=== PATIENT | male | born 1980 | race Caucasian/White ===

== ENCOUNTER 2018-11-10 21:49 | Emergency (ER) | payer OTHER ==
[~2018-11-10] VITALS: Ht 185.4 cm; Wt 72.7 kg
[2018-11-10 23:13] LABS: BASO # 0.1 10^3/uL (0.0-0.2); BASO % 1.1 % (0.0-1.0); EOS # 1.5 10^3/uL (0.0-0.50); EOS % 15.4 % (0.0-3.0); HEMATOCRIT 42.6 % (42.0-52.0); HEMOGLOBIN 14.8 g/dl (13.5-17.5); MEAN CORPUSCULAR HEMOGLOBIN 30.5 pg (27.0-33.0); MEAN CORPUSCULAR HGB CONC 34.7 g/dl (32.0-36.5); MEAN CORPUSCULAR VOLUME 87.7 fl (80.0-96.0); MONO # 0.6 10^3/uL (0.0-0.8); MONO % 5.8 % (0.0-5.0); NEUTROPHILS # 5.8 10^3/uL (1.8-7.7); NEUTROPHILS % 57.3 % (36.0-66.0); PLATELET COUNT, AUTOMATED 210 10^3/uL (150-450); RED BLOOD COUNT 4.86 10^6/uL (4.30-6.10)
[2018-11-10 23:42] LABS: ALBUMIN 3.7 GM/DL (3.2-5.2); ALT/SGPT 27 U/L (12-78); BILIRUBIN,DIRECT 0.2 MG/DL (0.0-0.2); BILIRUBIN,TOTAL 0.6 MG/DL (0.2-1.0); BLOOD UREA NITROGEN 31 MG/DL (7-18); CALCIUM LEVEL 9.1 MG/DL (8.5-10.1); CARBON DIOXIDE LEVEL 29 MEQ/L (21-32); CHLORIDE LEVEL 105 MEQ/L (98-107); CPK CREATINE PHOSPHOKINASE 125 U/L (39-308); CREATININE FOR GFR 1.01 MG/DL (0.70-1.30); GLOMERULAR FILTRATION RATE > 60.0 (>60); GLUCOSE, FASTING 84 MG/DL (70-100); LIPASE 134 U/L (73-393); POTASSIUM SERUM 3.8 MEQ/L (3.5-5.1); SODIUM LEVEL 140 MEQ/L (136-145); TOTAL PROTEIN 6.6 GM/DL (6.4-8.2); TROPONIN I < 0.02 NG/ML (< 0.10)
[2018-11-11] MEDS ORDERED: GI COCKTAIL 50ML BTL(HYOSCYAMINE/MAALOX/LIDOCAINE VISCOUS)(1:3:1) PO ONE (00:15)
[2018-11-11] MEDS ORDERED: DICY10SO PO (00:34)
[2018-11-11] MEDS ORDERED: OMEP40CA2 PO (00:34)
[2018-11-11 01:30] VITALS: BP 122/74
[2018-11-11] MEDS ORDERED: CARA1TAB6 PO (01:51)
--- NOTE | 2018-11-11 02:02 | ECGEPIP ---
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
[2018-11-12] MEDS ORDERED: CARA1TAB6 PO (20:16)
[2018-11-12] MEDS ORDERED: DICY10CA13 PO (20:16)
== END 2018-11-11 02:02 | disposition home or self-care (01) ==
LOC: M ED 21:49
DX: K52.9 Noninfective gastroenteritis and colitis, unspecified (principal); K44.9 Diaphragmatic hernia without obstruction or gangrene; I45.19 Other right bundle-branch block; Z79.899 Other long term (current) drug therapy; Z88.5 Allergy status to narcotic agent

== ENCOUNTER 2018-11-12 15:50 | Observation (INO) | payer OTHER ==
[~2018-11-12] VITALS: Ht 185.4 cm; Wt 68.8 kg
[~2018-11-12 15:50] MED LIST: CARA1TAB6 PO; DICY10SO PO; OMEP40CA2 PO
[2018-11-12 16:29] LABS: BASO # 0.1 10^3/uL (0.0-0.2); BASO % 1.1 % (0.0-1.0); EOS # 1.1 10^3/uL (0.0-0.50); HEMATOCRIT 48.7 % (42.0-52.0); HEMOGLOBIN 16.7 g/dl (13.5-17.5); LYMPH # 2.5 10^3/uL (1.5-4.5); LYMPH % 22.6 % (24.0-44.0); MEAN CORPUSCULAR HEMOGLOBIN 30.3 pg (27.0-33.0); MEAN CORPUSCULAR HGB CONC 34.3 g/dl (32.0-36.5); MEAN CORPUSCULAR VOLUME 88.4 fl (80.0-96.0); MONO # 0.6 10^3/uL (0.0-0.8); MONO % 5.6 % (0.0-5.0); NEUTROPHILS # 6.6 10^3/uL (1.8-7.7); NEUTROPHILS % 60.4 % (36.0-66.0); PLATELET COUNT, AUTOMATED 243 10^3/uL (150-450); RED BLOOD COUNT 5.51 10^6/uL (4.30-6.10)
[2018-11-12 16:39] LABS: INR 1.06; PROTHROMBIN TIME 13.9 SECONDS (12.1-14.4)
[2018-11-12 16:40] LABS: PARTIAL THROMBOPLASTIN TIME 28.4 SECONDS (25.4-37.6)
[2018-11-12] MEDS ORDERED: ISOVUE-370 76% 100ML VIAL (Q9967) As Ordered ONE (16:49)
[2018-11-12 17:07] LABS: ALBUMIN 4.1 GM/DL (3.2-5.2); BILIRUBIN,DIRECT 0.2 MG/DL (0.0-0.2); BILIRUBIN,TOTAL 0.5 MG/DL (0.2-1.0); TOTAL PROTEIN 7.4 GM/DL (6.4-8.2)
[2018-11-12] MEDS ORDERED: NS 1,000 ML IV ONE (17:15)
[2018-11-12] MEDS ORDERED: GI COCKTAIL 50ML BTL(HYOSCYAMINE/MAALOX/LIDOCAINE VISCOUS)(1:3:1) PO ONE (18:00)
--- NOTE | 2018-11-12 18:05 | REP ---
CT ABDOMEN AND PELVIS WITH IV CONTRAST: TECHNIQUE: Axial contrast enhanced images from the lung bases to the pubic symphysis using 100 mL Isovue 370 intravenous contrast material with multiplanar reformations. Visualized lung bases demonstrate chronic mild fibrotic change in the left lower lobe as seen on prior CT of 09/03/2015. The liver, spleen, adrenals, pancreas, and kidneys are unremarkable. There is no hydronephrosis. There is no hiatal hernia. The gallbladder is grossly unremarkable. There is no abdominal aortic aneurysm. There is no adenopathy. There is no free air or free fluid. There is no bowel wall thickening. The appendix is normal. Urinary bladder is mildly distended and grossly unremarkable. I do not see evidence of a pelvic mass. There is a small bone island in the proximal right femur. IMPRESSION: No acute abnormalities. Electronically Signed by Nikolas Sanchez MD 11/12/2018 07:48 P
[2018-11-12] MEDS ORDERED: MAALOX 30 ML SUSP *UDC PO PRN (20:00)
[2018-11-12] MEDS ORDERED: ACETAMINOPHEN TAB 650MG DOSE (2X325MG) PO PRN (20:00)
--- NOTE | 2018-11-12 20:01 | HPEPDOC ---
General Date of Admission 11/12/2018 Date of Service: Nov 12, 2018 Attending Physician: JERZY ROSALES MD Chief Complaint The patient is a 38-year-old male admitted with a reason for visit of Abd Pain. History of Present Illness Patient is a 38-year-old male, presenting to the emergency room on account of abdominal pain onset for 1 week. Patient has a past medical history significant for GERD, spontaneous pneumothorax, anxiety. He describes the pain as a burning sensation to his right upper quadrant which is constant, and another pain to his epigastric area which is intermittent and occurs after eating. Patient states he has no relieving factors or aggravating factors. Yogurt makes right upper quadrant pain a little better. 3 years ago. Patient had a similar occurrence of pain and was evaluated by flat breakdown processor with findings of hernia and gastritis. He was treated with proton pump inhibitor and antidepressants. Assessment in the ED with CT scan of abdomen and pelvis was negative for acute abdominal process. Laboratory data was unremarkable except for elevated white blood count. Patient denies any chills, fever, nausea, weakness, chest pain. Home Medications Scheduled Omeprazole (Omeprazole) 40 Mg Capsule.dr, 40 MG PO DAILY, (Reported) Miscellaneous Medications Dicyclomine Hcl (Dicyclomine HCl) 10 Mg/5 Ml Solution, 10 MG PO, (Reported) Allergies Coded Allergies: morphine (Verified Adverse Reaction, Mild, headace, 11/10/18) Past Medical History Medical History Spontaneous pneumothorax. Anxiety GERD Vertebral tumor Surgical History Back surgery EGD. Lungs surgery with left lobectomy. Family History Father: Myocardial infarction at 35 years. Mother: Diabetes mellitus, thyroid Sibling: Spontaneous pneumothorax A-FIB/CHADSVASC A-FIB History Current/History of A-Fib/PAF?: No Current PO Anticoag Therapy: No Review of Systems Other systems A 10 point pertinent review of systems was completed, negative except as stated in the history of presenting illness. Physical Examination Other physical findings GENERAL: NAD SKIN : Warm, dry intact HEENT: Atraumatic, normocephalic, PERRL, moist mucous membrane CARDIOVASCULAR: Regular rate and rhythm, S1S2, no JVD, no edema, distal pulses + and palpable RESP: CTAB, no accessory muscle use noted ABDOMEN: BS+ non distended non tender MS: no joint deformities NEURO: Alert and oriented x 3, CN2-12 grossly intact PSYCH: no anxiety or agitation, appropriate mood and affect. Vital Signs Vital Signs Date Time Temp Pulse Resp B/P (MAP) Pulse Ox O2 Delivery O2 Flow Rate FiO2 11/12/18 16:24 11/12/18 16:01 98.9 95 20 99 Room Air Laboratory Data Labs 24H Laboratory Tests 2 11/12/18 16:10: Immature Granulocyte % (Auto) 0.3, White Blood Count 11.0H, Red Blood Count 5.51, Hemoglobin 16.7, Hematocrit 48.7, Mean Corpuscular Volume 88.4, Mean Corpuscular Hemoglobin 30.3, Mean Corpuscular Hemoglobin Concent 34.3, Red Cell Distribution Width 12.0, Platelet Count 243, Neutrophils (%) (Auto) 60.4, Lymphocytes (%) (Auto) 22.6L, Monocytes (%) (Auto) 5.6H, Eosinophils (%) (Auto) 10.0H, Basophils (%) (Auto) 1.1H, Neutrophils # (Auto) 6.6, Lymphocytes # (Auto) 2.5, Monocytes # (Auto) 0.6, Eosinophils # (Auto) 1.1H, Basophils # (Auto) 0.1, Nucleated Red Blood Cells % (auto) 0.0, Prothrombin Time 13.9, Prothromb Time International Ratio 1.06, Activated Partial Thromboplast Time 28.4, Urine Color YELLOW, Urine Appearance CLEAR, Urine pH 7.0, Urine Specific [place] 1.048, Urine Protein NEGATIVE, Urine Glucose (UA) NEGATIVE, Urine Ketones NEGATIVE, Urine Blood NEGATIVE, Urine Nitrite NEGATIVE, Urine Bilirubin NEGATIVE, Urine Urobilinogen 0.2, Urine Leukocyte Esterase NEGATIVE, Urine WBC (Auto) 0, Urine RBC (Auto) 1, Urine Hyaline Casts (Auto) 0, Urine Bacteria (Auto) NEGATIVE, Urine Squamous Epithelial Cells 0, Urine Sperm (Auto) , Lactic Acid Level 1.1, Aspartate Amino Transf (AST/SGOT) 18, Alanine Aminotransferase (ALT/SGPT) 29, Alkaline Phosphatase 60, Total Bilirubin 0.5, Direct Bilirubin 0.2, Total Pro tein 7.4, Albumin 4.1, Albumin/Globulin Ratio 1.24, Amylase Level 43, Lipase 127 11/12/18 16:20: POC Glucose (Misc Panel) 84, POC Sodium (Misc Panel) 140, POC Potassium (Misc Panel) 3.7, POC Chloride (Misc Panel) 99, POC Total CO2 (Misc Panel) 29.0H, POC Blood Urea Nitrogen (Misc Panel 27H, POC Ionized Calcium (Misc Panel) 4.8, POC Creatinine (Misc Panel) 1.0, POC Hematocrit (Misc Panel) 49.0 CBC/BMP Laboratory Tests 11/12/18 16:10 Red Blood Count 5.51, Mean Corpuscular Volume 88.4, Mean Corpuscular Hemoglobin 30.3, Mean Corpuscular Hemoglobin Concent 34.3, Red Cell Distribution Width 12.0, Neutrophils (%) (Auto) 60.4, Lymphocytes (%) (Auto) 22.6 L, Monocytes (%) (Auto) 5.6 H, Eosinophils (%) (Auto) 10.0 H, Basophils (%) (Auto) 1.1 H, Neutrophils # (Auto) 6.6, Lymphocytes # (Auto) 2.5, Monocytes # (Auto) 0.6, Eosinophils # (Auto) 1.1 H, Basophils # (Auto) 0.1 Assessment/Plan Abdominal pain -GI specialist has been called by ED and plans to see patient tomorrow morning -Place on clear liquid diet in anticipation for possible gastric studies -Proton pump inhibitor twice a day -Normal saline at 100 mL per hour -Follow findings and recommendations of GI team Anxiety disorder -Possible contrast reading factor to patient's gastric pain DVT prophylaxis -Lovenox daily Plan / VTE VTE Prophylaxis Ordered?: Yes JOAN EARL Nov 12, 2018 20:01
[2018-11-12] MEDS ORDERED: CARA1TAB6 PO (20:16)
[2018-11-12] MEDS ORDERED: DICY10CA13 PO (20:16)
[2018-11-12] MEDS: NS 1,000 ML IV SCH (20:58)
[2018-11-12 21:10] VITALS: BP 118/76
[2018-11-12] MEDS: PANTOPRAZOLE 40MG INJ (PROTONIX) (C9113) IV SCH (21:31)
[2018-11-13] VITALS: BP 109/74
[2018-11-13 04:00] VITALS: BP 95/55
--- NOTE | 2018-11-13 05:53 | ECGEPIP ---
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
[2018-11-13] MEDS: NS 1,000 ML IV SCH (06:15)
[2018-11-13 08:00] VITALS: BP 124/78
[2018-11-13 08:04] LABS: BASO # 0.1 10^3/uL (0.0-0.2); EOS # 1.2 10^3/uL (0.0-0.50); EOS % 13.2 % (0.0-3.0); HEMATOCRIT 44.8 % (42.0-52.0); LYMPH # 2.1 10^3/uL (1.5-4.5); LYMPH % 23.7 % (24.0-44.0); MEAN CORPUSCULAR HEMOGLOBIN 29.8 pg (27.0-33.0); MEAN CORPUSCULAR HGB CONC 33.5 g/dl (32.0-36.5); MEAN CORPUSCULAR VOLUME 89.1 fl (80.0-96.0); MONO # 0.5 10^3/uL (0.0-0.8); MONO % 5.4 % (0.0-5.0); NEUTROPHILS % 56.5 % (36.0-66.0); PLATELET COUNT, AUTOMATED 207 10^3/uL (150-450); RED BLOOD COUNT 5.03 10^6/uL (4.30-6.10); WHITE BLOOD COUNT 8.9 10^3/uL (4.0-10.0)
[2018-11-13] MEDS: PANTOPRAZOLE 40MG INJ (PROTONIX) (C9113) IV SCH (08:11)
[2018-11-13] MEDS: SUCRALFATE 1 GM TAB PO SCH ×2 (08:29→12:00)
[2018-11-13 09:13] LABS: ALBUMIN 3.6 GM/DL (3.2-5.2); ALT/SGPT 28 U/L (12-78); BILIRUBIN,TOTAL 1.1 MG/DL (0.2-1.0); BLOOD UREA NITROGEN 15 MG/DL (7-18); CALCIUM LEVEL 8.3 MG/DL (8.5-10.1); CARBON DIOXIDE LEVEL 30 MEQ/L (21-32); CHLORIDE LEVEL 107 MEQ/L (98-107); CREATININE FOR GFR 1.03 MG/DL (0.70-1.30); GLOMERULAR FILTRATION RATE > 60.0 (>60); GLUCOSE, FASTING 95 MG/DL (70-100); POTASSIUM SERUM 3.8 MEQ/L (3.5-5.1); SODIUM LEVEL 140 MEQ/L (136-145); TOTAL PROTEIN 6.3 GM/DL (6.4-8.2)
--- NOTE | 2018-11-13 12:42 | REP ---
RIGHT UPPER QUADRANT ULTRASOUND: Real-time sonographic evaluation of the right upper quadrant was performed. Gallbladder demonstrates no evidence of intraluminal sludge or calculi, wall thickening or pericholecystic fluid. There is no intrahepatic or extrahepatic biliary dilatation, common bile duct measuring 4 mm. Liver and pancreas demonstrate no gross mass. Right kidney demonstrates no hydronephrosis with normal size 12.3 cm in length. No ascites is seen. IMPRESSION: Negative right upper quadrant ultrasound. No gallstones seen. Electronically Signed by Nikolas Sanchez MD 11/13/2018 07:32 P
[2018-11-13] MEDS ORDERED: OMEP40CA2 PO (13:25)
[2018-11-13] MEDS ORDERED: MYLASSUD PO (13:25)
--- NOTE | 2018-11-13 16:32 | DS.PDOC ---
Discharge Summary General Date of Admission Nov 12, 2018 at 19:46 Date of Discharge 11/13/18 Discharge Summary PROCEDURES PERFORMED DURING STAY: [None]. DISCHARGE DIAGNOSES: Acute gastritis and acid reflux. COMPLICATIONS/CHIEF COMPLAINT: Gastritis. HISTORY OF PRESENT ILLNESS: Please see history and physical HOSPITAL COURSE: Patient is a 38-year-old male, presenting to the emergency room on account of abdominal pain onset for 1 week. Patient has a past medical history significant for GERD, Hiatal hernia, spontaneous pneumothorax, H/o left lung lobectomy, Back surgery, anxiety. He describes the pain as a burning sensation to his right upper quadrant which is constant, and another pain to his epigastric area which is intermittent and occurs after eating. 3 years ago patient had a similar occurrence of pain and was evaluated by supervisor slate splitting with findings of hernia and gastritis. He was treated with proton pump inhibitor and antidepressants. Patient was admitted for possible acute gastr itis. Acute gastritis/ Acute episode of GERD/Hiatal hernia symptoms improved. Had EGD and upper Gi series done in the past CT abdomen pelvis normal GB ultrasound no abnormalities. tolerated BRAT diet. continue PPI bid, sucralfate, mylanta prn follow up with PMD and Dr Nolen as outpatient. If symptoms recur frequently then may need an EGD which can be done as an outpatient. Educated about diet and things to avoid. DISCHARGE MEDICATIONS: Please see below. ALLERGIES: Please see below. PHYSICAL EXAMINATION ON DISCHARGE: VITAL SIGNS: Please see below. GENERAL: NAD, Lean and thin , tall in appearance. SKIN : Warm, dry intact HEENT: Atraumatic, normocephalic, PERRL, moist mucous membrane CARDIOVASCULAR: Regular rate and rhythm, S1S2, no JVD, no edema, distal pulses + and palpable RESP: CTAB, no accessory muscle use noted ABDOMEN: BS+ non distended non tender MS: no joint deformities NEURO: Alert and oriented x 3, CN2-12 grossly intact PSYCH: no anxiety or agitation, appropriate mood and affect. LABORATORY DATA: Please see below. ACTIVITY: [As tolerated]. DIET: BRAT diet followed by bland diet. DISPOSITION: 01 Home, Self-Care. DISCHARGE INSTRUCTIONS: Follow up PMD in [address] Nolen as needed DISCHARGE CONDITION: [Stable]. TIME SPENT ON DISCHARGE: 35 minutes. Vital Signs/I&Os Vital Signs Date Time Temp Pulse Resp B/P (MAP) Pulse Ox O2 Delivery O2 Flow Rate FiO2 11/13/18 08:00 98.5 68 18 124/78 (93) 100 11/12/18 20:55 Room Air I&O- Last 24 Hours up to 6 AM 11/13/18 06:00 Intake Total 1420 ml Output Total 600 ml Balance 820 ml Laboratory Data Labs 24H Laboratory Tests 2 11/13/18 07:51: Immature Granulocyte % (Auto) 0.2, White Blood Count 8.9, Red Blood Count 5.03, Hemoglobin 15.0, Hematocrit 44.8, Mean Corpuscular Volume 89.1, Mean Corpuscular Hemoglobin 29.8, Mean Corpuscular Hemoglobin Concent 33.5, Red Cell Distribution Width 12.0, Platelet Count 207, Neutrophils (%) (Auto) 56.5, Lymphocytes (%) (Auto) 23.7L, Monocytes (%) (Auto) 5.4H, Eosinophils (%) (Auto) 13.2H, Basophils (%) (Auto) 1.0, Neutrophils # (Auto) 5.0, Lymphocytes # (Auto) 2.1, Monocytes # (Auto) 0.5, Eosinophils # (Auto) 1.2H, Basophils # (Auto) 0.1, Nucleated Red Blood Cells % (auto) 0.0, Anion Gap 3L, Glomerular Filtration Rate > 60.0, Blood Urea Nitrogen 15#, Creatinine 1.03, Sodium Level 140, Potassium Level 3.8, Chloride Level 107, Carbon Dioxide Level 30, Calcium Level 8.3L, Aspartate Amino Transf (AST/SGOT) 17, Alanine Aminotransferase (ALT/SGPT) 28, Alkaline Phos phatase 49, Total Bilirubin 1.1#H, Total Protein 6.3L, Albumin 3.6, Albumin/Globulin Ratio 1.33 CBC/BMP Laboratory Tests 11/13/18 07:51 Red Blood Count 5.03, Mean Corpuscular Volume 89.1, Mean Corpuscular Hemoglobin 29.8, Mean Corpuscular Hemoglobin Concent 33.5, Red Cell Distribution Width 12.0, Neutrophils (%) (Auto) 56.5, Lymphocytes (%) (Auto) 23.7 L, Monocytes (%) (Auto) 5.4 H, Eosinophils (%) (Auto) 13.2 H, Basophils (%) (Auto) 1.0, Neutrophils # (Auto) 5.0, Lymphocytes # (Auto) 2.1, Monocytes # (Auto) 0.5, Eosinophils # (Auto) 1.2 H, Basophils # (Auto) 0.1, Calcium Level 8.3 L, Aspartate Amino Transf (AST/SGOT) 17, Alanine Aminotransferase (ALT/SGPT) 28, Alkaline Phosphatase 49, Total Bilirubin 1.1 #H, Total Protein 6.3 L, Albumin 3.6 Discharge Medications Scheduled Omeprazole (Omeprazole) 40 Mg Capsule.dr, 40 MG PO BID Sucralfate (Carafate) 1 Gm Tablet, 1 GM PO ACHS, (Reported) Scheduled PRN Aluminum/Magnesium/Simeth (Mag-Al Plus Suspension) 30 Ml Oral.susp, 10 ML PO DAILY PRN for DYSPEPSIA Dicyclomine HCl (Dicyclomine HCl) 10 Mg Capsule, 10 MG PO TID PRN for CRAMPS, (Reported) Allergies Coded Allergies: morphine (Verified Adverse Reaction, Mild, headace, 11/10/18) ESTEE PRADO MD Nov 13, 2018 16:32
== END 2018-11-13 14:30 | disposition home or self-care (01) ==
LOC: M ED 15:50 → M ED INP 19:46 → M PED 21:05
PROVIDERS: ADMIT Hospitalist; ATTEND Hospitalist
DX: K29.00 Acute gastritis without bleeding (principal); K21.9 Gastro-esophageal reflux disease without esophagitis; K44.9 Diaphragmatic hernia without obstruction or gangrene; E86.0 Dehydration; R10.11 Right upper quadrant pain; R10.13 Epigastric pain; Z87.09 Personal history of other diseases of the respiratory system; Z90.2 Acquired absence of lung [part of]; F41.9 Anxiety disorder, unspecified; Z88.5 Allergy status to narcotic agent; Z79.899 Other long term (current) drug therapy
CPT/HCPCS: 36415; 74177; 76705; 80047; 80053; 80076; 81001; 82150; 83605; 83690; 85025; 85610; 85730; 93005; 96361; 96374; 96376; 99284; C9113; Q9967